=== PATIENT | female | born 1960 | race Caucasian/White ===

== ENCOUNTER 2021-09-21 05:45 | Observation (INO) ==
[2021-09-21] MEDS ORDERED: Acetaminophen 325 MG TABLET PO PRN ×2 (13:05→19:47)
[2021-09-21] MEDS ORDERED: Ondansetron 4 MG/2 ML VIAL IVP PRN ×2 (13:05→19:47)
[2021-09-21] MEDS ORDERED: D5% in Water 1,000 ML IVC PRN ×2 (13:05→19:47)
[2021-09-21] MEDS ORDERED: Melatonin 3 MG TABLET PO PRN ×2 (13:05→19:47)
[2021-09-21] MEDS ORDERED: *HR* Dextrose 50 % in Water (Syg) 50 ML SYRINGE IVP PRN ×2 (13:05→19:47)
[2021-09-21] MEDS ORDERED: Naloxone 0.4 MG/ML INJ IVP PRN ×2 (13:05→19:47)
[2021-09-21] MEDS ORDERED: *HR* OxyCODONE Immed Rel 5 MG TABLET PO PRN (13:05)
[2021-09-21] MEDS ORDERED: Dextrose Gel 15 GM/37.5 ML TUBE PO PRN ×4 (13:05→19:47)
[2021-09-21] MEDS: Ringers Solution, Lactated 1,000 ML IVC SCH ×3 (14:07→20:42)
[2021-09-21 14:28] LABS: Estimated Average Glucose 117 mg/dl; Hemoglobin A1C 5.7 %
[2021-09-21] MEDS ORDERED: Lidocaine -MPF 2% 5 ML VIAL ONE (15:09)
[2021-09-21] MEDS ORDERED: Lidocaine HCL 4 ML Topical Solution (Laryng-O-Jet Kit Sterile Pak) TP ONE (15:09)
[2021-09-21] MEDS ORDERED: *HR* Propofol 200 MG/20 ML VIAL IVP ONE (15:09)
[2021-09-21] MEDS ORDERED: *HR* FentaNYL (PF) 100 MCG/2 ML VIAL ONE (15:09)
[2021-09-21] MEDS ORDERED: *HR* Midazolam HCl 2 MG/2 ML VIAL ONE (15:09)
[2021-09-21] MEDS ORDERED: *HR* Rocuronium Bromide 50 MG/5 ML VIAL ONE (15:09)
[2021-09-21] MEDS ORDERED: Ondansetron 4 MG/2 ML VIAL ONE (15:09)
[2021-09-21] MEDS ORDERED: Piperacillin/Tazobactam 3.375 GM in 0.9 % Sodium Chloride Mini Bag 100 ML IVPB SCH (16:00)
[2021-09-21] MEDS ORDERED: Iopamidol - 300 50 ML VIAL ONE (16:02)
[2021-09-21] MEDS ORDERED: Scopolamine Patch 1.5 MG PATCH.TD72 ONE (16:07)
[2021-09-21] MEDS ORDERED: Scopolamine Patch 1.5 MG PATCH.TD72 TD ONE (16:15)
[2021-09-21] MEDS ORDERED: Sugammadex Sodium 200 MG/2 ML VIAL IV ONE (16:57)
[2021-09-21] MEDS ORDERED: Acetaminophen IV 1,000 MG/100 ML BAG IVPB ONE (17:01)
[2021-09-21] MEDS ORDERED: CefOXitin 2,000 MG VIAL ONE (17:23)
[2021-09-21] MEDS ORDERED: Insulin LISPRO 300 UNITS/3 ML VIAL SUBQ SCH (18:00)
[2021-09-21] MEDS: *HR* FentaNYL (PF) 100 MCG/2 ML VIAL IVP PRN ×4 (18:16→18:46)
[2021-09-21] MEDS: *HR* HYDROmorphone PF 0.5 MG/0.5 ML SYRINGE IVP PRN ×2 (18:59→19:10)
[2021-09-22] MEDS: Insulin LISPRO 300 UNITS/3 ML VIAL SUBQ SCH ×3 (00:26→12:33)
[2021-09-22] MEDS: Piperacillin/Tazobactam 3.375 GM in 0.9 % Sodium Chloride Mini Bag 100 ML IVPB SCH ×2 (00:27→08:30)
[2021-09-22] MEDS: *HR* OxyCODONE Immed Rel 5 MG TABLET PO PRN ×2 (02:45→12:52)
[2021-09-22] MEDS: Ringers Solution, Lactated 1,000 ML IVC SCH (08:29)
[2021-09-22 09:59] LABS: Basophils % 0.1 %; Eosinophils % 0.1 %; Hematocrit 34.4 % (35.3-44.9); Immature Granulocytes % 0.3 % (0-4); Lymphocytes # 0.7 K/mcL (0.6-4.6); Lymphocytes % 6.9 %; Mean Corpuscular HGB Conc 32.6 g/dL (31.6-35.5); Mean Corpuscular Hemoglobin 29.6 pg (28.0-33.3); Mean Platelet Volume 9.9 fL (9.4-12.4); Monocytes # 0.7 K/mcL (0.0-1.3); Monocytes % 6.9 %; Neutrophils # 8.8 K/mcL (1.6-8.9); Platelet Count 186 K/mcL (140-400); Red Blood Count 3.78 M/mcL (3.82-4.97); Red Cell Distribution Width 12.4 % (11.5-14.5); Segmented Neutrophils % 85.7 %; White Blood Count 10.3 K/mcL (4.3-11.1)
[2021-09-22 10:00] LABS: Hemoglobin 11.2 g/dL (11.5-15.4)
[2021-09-22 10:22] LABS: Alanine Aminotransferase 45 Units/L (7-52); Albumin 2.7 g/dL (3.5-5.7); Albumin/Globulin Ratio 1.6 (1.1-2.2); Alkaline Phosphatase 59 Units/L (34-104); Aspartate Amino Transferase 34 Units/L (13-39); BUN/Creatinine Ratio 13 (6-26); Bilirubin,Total 0.4 mg/dL (0.3-1.0); Blood Urea Nitrogen 7 mg/dL (8-23); Calcium 7.8 mg/dL (8.6-10.3); Carbon Dioxide 25 mEq/L (23-29); Chloride 104 mEq/L (98-107); Globulin 1.7 g/dL (2.4-3.5); Glucose 91 mg/dL (70-105); Osmolality,Calculated 280 (280-300); Potassium 3.9 mEq/L (3.5-5.1); Sodium 136 mEq/L (136-145); Total Protein 4.4 g/dL (6.4-8.9); eGFR For African Americans > 60 (> 60); eGFR For Non-African Americans > 60 (> 60)
[2021-09-22 11:42] VITALS: BP 115/70; PULSE 67; TEMP 97.4; O2SAT 93
== END 2021-09-22 16:21 | disposition home or self-care (01) ==
LOC: 3BNU
PROVIDERS: ADMIT Student in an Organized Health Care Education/Training Program; ATTEND Student in an Organized Health Care Education/Training Program